=== PATIENT | female | born 1985 | race Caucasian/White ===

== ENCOUNTER 2016-09-09 08:20 | Day surgery (SDC) | payer OTHER ==
[2016-09-09] VITALS (7 sets, daily range): BP systolic 118–130; BP diastolic 59–78
[~2016-09-09] VITALS: Ht 157.5 cm; Wt 72.6 kg
[~2016-09-09 08:20] MED LIST: BCP PO; LIDOCAINE 2% INJ 100 MG/5 ML SDV (FOR ANES.) As Ordered ONE; METOCLOPRAMIDE INJ 10MG/2ML VIAL (J2765) As Ordered ONE; MIDAZOLAM INJ 2 MG/2 ML VIAL (J2250) As Ordered ONE; PROPOFOL 200 MG/20 ML VIAL As Ordered ONE; ROCURONIUM BROMIDE 50 MG/5 ML VIAL As Ordered ONE; SING10TA32 PO; XYZOL PO; fentaNYL 250 MCG/5 ML INJECTION (J3010) As Ordered ONE
[2016-09-09] MEDS ORDERED: GLYCOPYRROLATE INJ 0.2 MG/ML 2 ML VIAL As Ordered ONE (08:37)
[2016-09-09] MEDS ORDERED: KETOROLAC 60 MG/2 ML VIAL (J1885) As Ordered ONE ×2 (08:39→11:14)
[2016-09-09] MEDS ORDERED: ONDANSETRON 4MG/2ML VIAL (J2405) As Ordered ONE ×2 (08:39→11:14)
[2016-09-09] MEDS ORDERED: HYDROmorphone HCL 2 MG/ML 1ML VIAL (J1170) As Ordered ONE ×2 (08:40→11:37)
[2016-09-09] MEDS ORDERED: MIDAZOLAM INJ 2 MG/2 ML VIAL (J2250) As Ordered ONE (08:56)
[2016-09-09] MEDS ORDERED: fentaNYL 250 MCG/5 ML INJECTION (J3010) As Ordered ONE (08:57)
[2016-09-09] MEDS ORDERED: LIDOCAINE 2% INJ 100 MG/5 ML SDV (FOR ANES.) As Ordered ONE (08:58)
[2016-09-09] MEDS ORDERED: PROPOFOL 200 MG/20 ML VIAL As Ordered ONE (08:59)
[2016-09-09] MEDS ORDERED: ROCURONIUM BROMIDE 50 MG/5 ML VIAL As Ordered ONE (09:02)
[2016-09-09 09:21] LABS: CONTROL LINE UCG INT CTR LINE PRESENT
[2016-09-09 09:25] LABS: MEAN CORPUSCULAR HGB CONC 34.8 g/dl (32.0-36.5); MEAN CORPUSCULAR VOLUME 91.9 fl (80.0-96.0); RED CELL DISTRIBUTION WIDTH 12.1 % (11.5-14.5); WHITE BLOOD COUNT 6.8 K/mm3 (4.0-10.0)
[2016-09-09] MEDS ORDERED: BUSP5TA PO (09:44)
[2016-09-09] MEDS ORDERED: LR 1,000 ML IV SCH ×4 (09:45→12:45)
[2016-09-09] MEDS: LR 1,000 ML IV SCH ×2 (09:45→12:26)
[2016-09-09] MEDS ORDERED: ceFAZolin SOD 1 GM in D5W MINI-BAG PLUS 50 ML IV ONE (09:45)
[2016-09-09] MEDS ORDERED: OXYC1TAB23 PO (09:47)
[2016-09-09] MEDS ORDERED: BUPIVACAINE HCL 0.25% 30 ML VIAL As Ordered ONE (09:47)
[2016-09-09] MEDS ORDERED: METHYLENE BLUE 1% 10 ML VIAL (Q9968) As Ordered ONE (09:47)
[2016-09-09] MEDS ORDERED: TYLE500T78 PO (10:08)
[2016-09-09] MEDS ORDERED: dexameTHASONE 4 MG/ML 1ML VIAL (J1100) As Ordered ONE (10:35)
[2016-09-09] MEDS ORDERED: BUPIVACAINE HCL 0.25% 30 ML VIAL XX ONE (10:46)
[2016-09-09] MEDS ORDERED: PERCOCET 5MG/325MG TAB As Ordered ONE (12:10)
[2016-09-09] MEDS ORDERED: METOCLOPRAMIDE INJ 10MG/2ML VIAL (J2765) IV PRN ×2 (12:30→14:00)
[2016-09-09] MEDS ORDERED: ONDANSETRON 4MG/2ML VIAL (J2405) IV PRN ×2 (12:30→12:45)
[2016-09-09] MEDS ORDERED: PERCOCET 5MG/325MG TAB PO PRN ×2 (12:30→12:45)
[2016-09-09] MEDS ORDERED: fentaNYL 100 MCG/2 ML INJECTION (J3010) IV PRN (12:30)
[2016-09-09] MEDS ORDERED: MORPHINE 4 MG/ML 1ML SYRINGE IV PRN (12:45)
[2016-09-09] MEDS: DOCUSATE SODIUM 100 MG CAP PO SCH ×2 (14:47→20:17)
[2016-09-09] MEDS: PERCOCET 5MG/325MG TAB PO PRN (16:13)
--- NOTE | 2016-09-09 19:01 | RO ---
DATE OF PROCEDURE: 09/09/2016 PREPROCEDURE DIAGNOSIS: Recurrent severe cervical dysplasia. POSTPROCEDURE DIAGNOSIS: Recurrent severe cervical dysplasia. PROCEDURE: Robotic-assisted laparoscopic hysterectomy with bilateral salpingo-oophorectomy and cystoscopy. SURGEON: Javier Andrade MD FORESTRY PROFESSOR: AVELINO Ballesteros ANESTHESIA: General endotracheal. ESTIMATED BLOOD LOSS: 100 mL. FINDINGS: Normal uterus, fallopian tubes, and ovaries. Normal upper abdomen. OPERATIVE SUMMARY: The patient taken to the operating room where general endotracheal anesthesia was induced. She was prepped and draped in sterile fashion in the dorsal lithotomy position. A Aviles catheter was placed. VCare uterine manipulator was placed. A periumbilical incision made with a scalpel. Veress needle was placed through this incision while tenting up on the skin of the abdomen. Intraabdominal location of the Veress needle was assessed with use of a saline filled synringe. A pneumoperitoneum was created. The Veress needle was removed. An 11 mm trocar was placed through this incision. Three 8 mm suprapubic ports were placed under direct visualization without difficulty. The patient was placed in Trendelenburg position and the da Susanna surgical robot was docked. Insole Taper Gris Fletcher assisted with the insertion of ports as well as docking of the da Susanna robot. She also served as a critical role of uterine manipulation throughout the duration of the procedure. She assisted with closure of the incision and removal and undocking of the robot as well. The infundibulopelvic (IP) ligaments were coagulated, PK dissector and incised with monopolar endoshears. Broad ligament attachments were coagulated and incised. The round ligaments were coagulated and incised. The anterior and posterior leaves of the broad ligament were . The bladder flap was created. The uterine vessels were skeletonized, coagulated and incised. Colpotomy was created and the upper vagina was circumscribed at the level of VCare cup. Specimen included the uterus, cervix, fallopian tubes, and ovaries were removed through the vagina. The vagina was closed with V-Loc suture in a running fashion. The pelvis was irrigated. The patient received methylene blue dye intravenously. Cystoscopy was performed using a 70 degrees cystoscope. Bilateral ureteral jets were identified. There was no evidence of injury to the bladder. All instruments were removed and the Aviles catheter was replaced. Skin was closed with #4-0 Monocryl subcuticular sutures. The sponge, instrument and needle counts were correct.
[2016-09-09] MEDS: KETOROLAC 30 MG/ML VIAL (J1885) IV PRN (20:17)
[2016-09-10] VITALS: BP 129/72
[2016-09-10 04:00] VITALS: BP 122/73
[2016-09-10] MEDS: KETOROLAC 30 MG/ML VIAL (J1885) IV PRN (04:20)
[2016-09-10 07:25] LABS: MEAN CORPUSCULAR HEMOGLOBIN 31.8 pg (27.0-33.0); MEAN CORPUSCULAR HGB CONC 34.9 g/dl (32.0-36.5); MEAN CORPUSCULAR VOLUME 91.1 fl (80.0-96.0); WHITE BLOOD COUNT 10.8 K/mm3 (4.0-10.0)
[2016-09-10 08:00] VITALS: BP 120/67
[2016-09-10] MEDS ORDERED: ACET30TAB PO (08:03)
[2016-09-10] MEDS: DOCUSATE SODIUM 100 MG CAP PO SCH (09:37)
[2016-09-10] MEDS: PERCOCET 5MG/325MG TAB PO PRN (09:51)
[2016-09-10] MEDS ORDERED: ESTR625TA PO (10:20)
== END 2016-09-10 10:50 | disposition home or self-care (01) ==
LOC: M SDC 08:20 → M PED 12:57 → M SDC 09-10 10:50
PROVIDERS: ATTEND Specialist
DX: D06.9 Carcinoma in situ of cervix, unspecified (principal); F32.9 Major depressive disorder, single episode, unspecified; Z79.899 Other long term (current) drug therapy
CPT/HCPCS: 36415; 58571; 84703; 85027; 88309; 96374; 96375; 96376; J0690; J1100; J1170; J1885; J2250; J2405; J2765; J3010; Q9968

== ENCOUNTER → 2016-09-20 | Outpatient (REF) | payer OTHER ==
[~2016-09-20] MED LIST changes: +ACET30TAB PO; +BUSP5TA PO; +ESTR625TA PO; -LIDOCAINE 2% INJ 100 MG/5 ML SDV (FOR ANES.) As Ordered ONE; -METOCLOPRAMIDE INJ 10MG/2ML VIAL (J2765) As Ordered ONE; -MIDAZOLAM INJ 2 MG/2 ML VIAL (J2250) As Ordered ONE; +OXYC1TAB23 PO; -PROPOFOL 200 MG/20 ML VIAL As Ordered ONE; -ROCURONIUM BROMIDE 50 MG/5 ML VIAL As Ordered ONE; +TYLE500T78 PO; -fentaNYL 250 MCG/5 ML INJECTION (J3010) As Ordered ONE
[2016-09-20 11:15] LABS: MEAN CORPUSCULAR HEMOGLOBIN 30.7 pg (27.0-33.0); MEAN CORPUSCULAR HGB CONC 33.3 g/dl (32.0-36.5); MEAN CORPUSCULAR VOLUME 92.1 fl (80.0-96.0); WHITE BLOOD COUNT 7.3 K/mm3 (4.0-10.0)
[2016-09-20 11:42] LABS: ALBUMIN 3.9 GM/DL (3.2-5.2); ALBUMIN/GLOBULIN RATIO 1.15 (1.00-1.93); ALKALINE PHOSPHATASE 60 U/L (45-117); ALT/SGPT 18 U/L (12-78); ANION GAP 8 MEQ/L (8-16); AST/SGOT 13 U/L (15-37); BILIRUBIN,TOTAL 0.8 MG/DL (0.2-1.0); BLOOD UREA NITROGEN 10 MG/DL (7-18); CALCIUM LEVEL 9.4 MG/DL (8.5-10.1); CARBON DIOXIDE LEVEL 30 MEQ/L (21-32); CHLORIDE LEVEL 105 MEQ/L (98-107); CHOLESTEROL LEVEL 240 MG/DL (<200); CREATININE FOR GFR 0.72 MG/DL (0.55-1.02); GLOMERULAR FILTRATION RATE > 60.0 (>60); GLUCOSE, FASTING 86 MG/DL (70-105); POTASSIUM SERUM 4.3 MEQ/L (3.5-5.1); SODIUM LEVEL 143 MEQ/L (136-145); TOTAL PROTEIN 7.3 GM/DL (6.4-8.2); TRIGLYCERIDES LEVEL 184 MG/DL (<150)
== END ==
LOC: M SFHCLERA 08:36
PROVIDERS: ATTEND Family Medicine
DX: Z02.1 Encounter for pre-employment examination (principal)

== ENCOUNTER → 2016-12-02 | Outpatient (REF) | payer BC, OTHER | LOC: M SFHCLERA 18:14 | PROVIDERS: ATTEND Nurse Practitioner Family | DX: J02.9 Acute pharyngitis, unspecified (principal) ==

== ENCOUNTER → 2016-12-12 | Outpatient (REF) | payer BC, OTHER | LOC: M SFHCLERA 16:50 | PROVIDERS: ATTEND Family Medicine | DX: J02.9 Acute pharyngitis, unspecified (principal); H92.02 Otalgia, left ear ==

== ENCOUNTER → 2017-04-16 | Outpatient (CLI) | payer BC, OTHER ==
[~2017-04-16] MED LIST changes: +EPIP0.3I2 IJ
--- NOTE | 2017-04-16 09:09 | REP ---
CHEST, TWO VIEWS: CHEST: There is no evidence of acute infiltrate. No pleural effusion is seen. The heart is normal in size. The mediastinal silhouette is unremarkable. The visualized osseous structures are intact. IMPRESSION: No acute pulmonary disease. Signed by Srinath Bonds MD 04/16/2017 05:07 P
== END ==
LOC: M LRY 07:58
PROVIDERS: ATTEND Family Medicine
DX: R09.1 Pleurisy (principal)

== ENCOUNTER → 2017-05-13 | Outpatient (CLI) | payer BC ==
[2017-05-16 08:08] LABS: F025-IGE TOMATO <0.10 kU/L (Class 0)
== END ==
LOC: M SMT 13:35
PROVIDERS: ATTEND Nurse Practitioner Family
DX: Z91.018 Allergy to other foods (principal)

== ENCOUNTER → 2017-05-15 | Outpatient (REF) | payer BC, OTHER | LOC: M SFHCLERA 16:33 | PROVIDERS: ATTEND Family Medicine | DX: K58.1 Irritable bowel syndrome with constipation (principal); J02.9 Acute pharyngitis, unspecified ==

== ENCOUNTER 2017-06-20 19:07 | Emergency (ER) | payer BC, OTHER ==
[~2017-06-20 19:07] MED LIST changes: -EPIP0.3I2 IJ
[2017-06-20] MEDS ORDERED: EPIP0.3I2 IJ (19:52)
[2017-06-20 20:05] VITALS: BP 126/69
== END 2017-06-20 20:06 | disposition home or self-care (01) ==
LOC: M ED 19:07
DX: L29.9 Pruritus, unspecified (principal); T51.0X1A Toxic effect of ethanol, accidental (unintentional), initial encounter; Y92.9 Unspecified place or not applicable; Y93.9 Activity, unspecified; Z79.899 Other long term (current) drug therapy; Z88.1 Allergy status to other antibiotic agents

== ENCOUNTER → 2017-10-13 | Outpatient (REF) | payer BC, OTHER | LOC: M SFHCLERA 15:24 | DX: J02.9 Acute pharyngitis, unspecified (principal) ==

== ENCOUNTER 2017-10-22 09:55 | Day surgery (SDC) | payer BC ==
[2017-10-22] MEDS: NS 1,000 ML IV (11:06)
[2017-10-22] MEDS ORDERED: LIDOCAINE 2% MDV 20 ML VIAL As Ordered (11:28)
[2017-10-22] MEDS ORDERED: PROPOFOL 200 MG/20 ML VIAL As Ordered ×3 (11:28→11:54)
== END 2017-10-22 13:04 | disposition home or self-care (01) ==
LOC: M OPP 09:55
DX: R19.4 Change in bowel habit (principal); Z80.0 Family history of malignant neoplasm of digestive organs; F41.9 Anxiety disorder, unspecified; F32.9 Major depressive disorder, single episode, unspecified; Z79.899 Other long term (current) drug therapy; Z88.1 Allergy status to other antibiotic agents; Z90.710 Acquired absence of both cervix and uterus
CPT/HCPCS: 45378

== ENCOUNTER → 2018-07-17 | Outpatient (REF) | payer BC, OTHER | LOC: M SFHCLERA 18:41 | DX: J02.9 Acute pharyngitis, unspecified (principal) ==

== ENCOUNTER → 2018-07-24 | Outpatient (CLI) | payer BC, OTHER | LOC: M LRY 18:22 | DX: R05 Cough (principal); R91.8 Other nonspecific abnormal finding of lung field | CPT/HCPCS: 71046 ==

== ENCOUNTER → 2018-08-29 | Outpatient (REF) | payer BC ==
[~2018-08-29] MED LIST changes: +EPIP0.3I2 IJ; +XYZA5TAB2 PO
--- NOTE | 2018-08-29 20:19 | REP ---
Clinical: Foreign body. Technique: AP, lateral, bilateral oblique views of the left foot. Findings: There is a thin foreign body within the subcutaneous tissues underlying the third metatarsal bone which measures approximately 14 mm in length and is consistent with fractured needle fragment. No obvious subcutaneous emphysema. The osseous structures and joint spaces are intact and unaffected. No acute fracture or dislocation. Impression: Foreign body consistent with needle fragment in the subcutaneous soft tissues underlying the third metatarsal bone. Electronically Signed by Fly Bruno MD 08/29/2018 08:11 P
== END ==
LOC: M RAD 19:45
PROVIDERS: ATTEND Physician Assistant
DX: M25.572 Pain in left ankle and joints of left foot (principal)

== ENCOUNTER → 2018-11-25 | Outpatient (REF) | payer BC, OTHER | LOC: M SFHCLERA 19:01 | PROVIDERS: ATTEND Physician Assistant | DX: J02.9 Acute pharyngitis, unspecified (principal) ==

== ENCOUNTER → 2019-02-02 | Outpatient (REF) | payer BC, OTHER ==
[~2019-02-02] MED LIST changes: +ACET-716 PO; -ACET30TAB PO; +CLON0.5T8; +VENTAER
[2019-02-02 20:53] LABS: BASO % 0.6 % (0.0-1.0); EOS # 0.1 10^3/uL (0.0-0.50); EOS % 1.9 % (0.0-3.0); HEMATOCRIT 40.2 % (36.0-47.0); LYMPH # 2.1 10^3/uL (1.5-4.5); LYMPH % 30.8 % (24.0-44.0); MEAN CORPUSCULAR HEMOGLOBIN 31.2 pg (27.0-33.0); MEAN CORPUSCULAR HGB CONC 32.3 g/dl (32.0-36.5); MEAN CORPUSCULAR VOLUME 96.4 fl (80.0-96.0); MONO # 0.4 10^3/uL (0.0-0.8); MONO % 6.1 % (0.0-5.0); NEUTROPHILS # 4.2 10^3/uL (1.8-7.7); NEUTROPHILS % 60.5 % (36.0-66.0); PLATELET COUNT, AUTOMATED 265 10^3/uL (150-450); RED BLOOD COUNT 4.17 10^6/uL (4.00-5.40); WHITE BLOOD COUNT 6.9 10^3/uL (4.0-10.0)
== END ==
LOC: M SFHCLERA 10:07
PROVIDERS: ATTEND Family Medicine
DX: R22.1 Localized swelling, mass and lump, neck (principal)

== ENCOUNTER 2019-02-23 17:56 | Emergency (ER) | payer SELFPAY ==
[~2019-02-23] VITALS: Ht 157.5 cm; Wt 76.4 kg
[2019-02-23] MEDS ORDERED: TYLETAB14 (18:03)
[2019-02-23] MEDS ORDERED: CLIN300C5 (18:03)
[2019-02-23 19:57] LABS: BASO % 0.5 % (0.0-1.0); EOS # 0.1 10^3/uL (0.0-0.50); EOS % 1.4 % (0.0-3.0); HEMATOCRIT 35.6 % (36.0-47.0); HEMOGLOBIN 12.1 g/dl (12.0-15.5); LYMPH # 2.2 10^3/uL (1.5-4.5); LYMPH % 27.5 % (24.0-44.0); MEAN CORPUSCULAR HEMOGLOBIN 31.7 pg (27.0-33.0); MEAN CORPUSCULAR VOLUME 93.2 fl (80.0-96.0); MONO # 0.5 10^3/uL (0.0-0.8); MONO % 6.8 % (0.0-5.0); NEUTROPHILS % 63.5 % (36.0-66.0); PLATELET COUNT, AUTOMATED 285 10^3/uL (150-450); RED BLOOD COUNT 3.82 10^6/uL (4.00-5.40); WHITE BLOOD COUNT 7.9 10^3/uL (4.0-10.0)
--- NOTE | 2019-02-23 20:30 | REP ---
Clinical: Cellulitis. Technique: AP and lateral views of the right tibia / fibula. Findings: The osseous structures and joint spaces are intact and normal. The surrounding soft tissues are grossly unremarkable and without subcutaneous emphysema or foreign body. Impression: Normal right tibia / fibula radiographs. Electronically Signed by Fly Bruno MD 02/23/2019 08:22 P
[2019-02-23 20:38] LABS: ERYTHROCYTE SEDIMENTATION RATE 33 mm/hr (0-20)
[2019-02-23 20:59] VITALS: BP 126/80
[2019-02-23] MEDS ORDERED: TYLETAB14 PO (21:02)
== END 2019-02-23 21:07 | disposition home or self-care (01) ==
LOC: M ED 17:56
DX: L03.115 Cellulitis of right lower limb (principal); K59.09 Other constipation; Z79.899 Other long term (current) drug therapy; Z88.8 Allergy status to other drugs, medicaments and biological substances

== ENCOUNTER → 2019-09-26 | Outpatient (REF) | payer BC, OTHER, SELFPAY ==
[~2019-09-26] MED LIST changes: +AZIT500T5 PO; +CLIN300C5; +CLON0.5T2; -CLON0.5T8; +OSEL75CA2; +TUSS1CAP5 PO; +TYLETAB14; +TYLETAB14 PO
[2019-09-26 14:55] LABS: INFLUENZA A AMPLIFICATION NEGATIVE (NEGATIVE); INFLUENZA B AMPLIFICATION NEGATIVE (NEGATIVE)
== END ==
LOC: M LAB REF 14:10
PROVIDERS: ATTEND Physician Assistant Medical
DX: R50.9 Fever, unspecified (principal)

== ENCOUNTER 2019-09-27 16:43 | Emergency (ER) | payer SELFPAY ==
[~2019-09-27] VITALS: Ht 157.5 cm; Wt 74.1 kg
[~2019-09-27 16:43] MED LIST changes: -AZIT500T5 PO; -OSEL75CA2; -TUSS1CAP5 PO
[2019-09-27] MEDS ORDERED: IBUPROFEN 600 MG TAB PO ONE (20:15)
[2019-09-27] MEDS ORDERED: OSEL75CA2 (20:53)
[2019-09-27] MEDS ORDERED: AZIT500T5 PO (21:49)
[2019-09-27] MEDS ORDERED: TUSS1CAP5 PO (21:50)
[2019-09-27] MEDS ORDERED: TUSSICAPS ER 10/8MG CAPSULE PO ONE (22:00)
[2019-09-27] MEDS ORDERED: AZITHROMYCIN 250 MG TAB PO ONE (22:00)
[2019-09-27 22:04] VITALS: BP 135/82
== END 2019-09-27 22:07 | disposition home or self-care (01) ==
LOC: M ED 16:43
DX: J20.9 Acute bronchitis, unspecified (principal); R50.9 Fever, unspecified; H92.23 Otorrhagia, bilateral; F41.9 Anxiety disorder, unspecified; Z88.1 Allergy status to other antibiotic agents; Z79.899 Other long term (current) drug therapy

== ENCOUNTER 2020-03-28 17:49 | Emergency (ER) | payer BC ==
[~2020-03-28 17:49] MED LIST changes: +AZIT500T5 PO; +OSEL75CA2; +TUSS1CAP5 PO
[2020-03-28] MEDS ORDERED: MAGNESIUM CITRATE 300 ML BTL As Ordered ONE (20:59)
[2020-03-28] MEDS ORDERED: MAGNESIUM CITRATE 300 ML BTL ONE (20:59)
== END 2020-03-28 22:20 | disposition home or self-care (01) ==
LOC: M ED 17:49
DX: K59.00 Constipation, unspecified (principal); Z88.1 Allergy status to other antibiotic agents; Z79.899 Other long term (current) drug therapy

== ENCOUNTER → 2020-10-12 | Outpatient (CLI) | payer BC ==
[~2020-10-12] MED LIST changes: -CLIN300C5; +CLIN300C6
--- NOTE | 2020-10-12 07:29 | REPVR ---
PROCEDURE INFORMATION: Exam: CT Maxillofacial Without Contrast, Sinus Exam date and time: 10/12/2020 7:17 AM Age: 35 years old Clinical indication: Pain; Other: Sinus; Additional info: Chronic max sinusitis TECHNIQUE: Imaging protocol: CT Maxillofacial without contrast. Focus on the sinuses. Radiation optimization: All CT scans at this facility use at least one of these dose optimization techniques: automated exposure control; mA and/or kV adjustment per patient size (includes targeted exams where dose is matched to clinical indication); or iterative reconstruction. COMPARISON: CT Maxilofacial w/out contrast 01/19/2019 4:34 PM FINDINGS: Frontal sinuses: The frontal sinuses are again hypoplastic. Ethmoid air cells: Normal. No air-fluid levels. Sphenoid sinuses: Normal. No air-fluid levels. Maxillary sinuses: Normal. No air-fluid levels. Ostiomeatal units are patent. Nasal cavity/Septum: The ostiomeatal units are patent. Orbital cavity: The globes appear grossly intact, and no definite intraorbital hematoma is identified. Bones/joints: The temporomandibular joints are normally aligned. The orbital floors and lamina papyracea are intact. No acute fracture is identified. Soft tissues: Unremarkable. Mastoid air cells: The mastoid air cells are clear. Brain: The visualized intracranial structures appear grossly unremarkable. IMPRESSION: No significant paranasal sinus disease. Electronically signed by: Dylon Hodges On 10/12/2020 07:29:37 AM
== END ==
LOC: M RAD 07:10
PROVIDERS: ATTEND Otolaryngology
DX: J32.0 Chronic maxillary sinusitis (principal)

== ENCOUNTER → 2021-02-16 | Outpatient (CLI) | payer BC ==
[~2021-02-16] MED LIST changes: +ESTR1TAB; +LEVOTAB10; +PANT40TA29; +SUCR1TAB56
== END ==
LOC: M LABSMTC 10:50
PROVIDERS: ATTEND Anesthesiology
DX: Z01.818 Encounter for other preprocedural examination (principal); Z11.52 Encounter for screening for COVID-19

== ENCOUNTER 2021-02-21 12:33 | Day surgery (SDC) | payer BC ==
[~2021-02-21] VITALS: Ht 157.5 cm; Wt 79.4 kg
[~2021-02-21 12:33] MED LIST changes: +NS 1,000 ML IV ONE
[2021-02-21] MEDS ORDERED: LIDOCAINE 2% 100MG/5ML SDV (FOR ANES.) As Ordered ONE (12:54)
[2021-02-21] MEDS ORDERED: propofoL 200 MG/20 ML VIAL As Ordered ONE (12:54)
[2021-02-21] MEDS ORDERED: fentaNYL 100 MCG/2 ML INJECTION (J3010) As Ordered ONE (14:46)
--- NOTE | 2021-02-21 14:56 | ROOR ---
Patient Name: Coretta Davis Procedure Date: 02/21/2021 2:38 PM Date of : 1985 Age: 35 Room: [facility] Gender: Female Note Status: Finalized Procedure: Upper GI endoscopy Indications: Suspected acute gastritis with hemorrhage Providers: DO bAbey Galvan MD: Srinath KIRKPATRICK MD Requesting Provider: Medicines: Propofol per Anesthesia Complications: No immediate complications. Procedure: Pre-Anesthesia Assessment: - Prior to the procedure, a History and Physical was performed, and patient medications and allergies were reviewed. The patient is competent. The risks and benefits of the procedure and the sedation options and risks were discussed with the patient. All questions were answered and informed consent was obtained. Patient identification and proposed procedure were verified by the physician, the nurse, the farm equipment assembler and the detail technician in the endoscopy suite. Mental Status Examination: alert and oriented. Airway Examination: normal oropharyngeal airway and neck mobility. Respiratory Examination: clear to auscultation. CV Examination: normal. Prophylactic Antibiotics: The patient does not require prophylactic antibiotics. Prior Anticoagulants: The patient has taken no previous anticoagulant or antiplatelet agents. ASA Grade Assessment: II - A patient with mild systemic disease. After reviewing the risks and benefits, the patient was deemed in satisfactory condition to undergo the procedure. The anesthesia plan was to use monitored anesthesia care (MAC). Immediately prior to administration of medications, the patient was re-assessed for adequacy to receive sedatives. The heart rate, respiratory rate, oxygen saturations, blood pressure, adequacy of pulmonary ventilation, and response to care were monitored throughout the procedure. The physical status of the patient was re-assessed after the procedure. The Endoscope was introduced through the mouth, and advanced to the second part of duodenum. The patient tolerated the procedure well. Findings: Diffuse mild inflammation characterized by erythema and friability was found in the prepyloric region of the stomach. Biopsies were taken with a cold forceps for Helicobacter pylori testing. Estimated blood loss was minimal. There is no endoscopic evidence of bleeding or inflammation in the first portion of the duodenum. Biopsies for histology were taken with a cold forceps for evaluation of celiac disease. Impression: - Gastritis. Biopsied. Recommendation: - Patient has a contact number available for emergencies. The signs and symptoms of potential delayed complications were discussed with the patient. Return to normal activities tomorrow. Written discharge instructions were provided to the patient. - Await pathology results. - Return to my office at appointment to be scheduled. Procedure Code(s): --- Professional --- 69146, Esophagogastroduodenoscopy, flexible, transoral; with biopsy, single or multiple Diagnosis Code(s): --- Professional --- K29.70, Gastritis, unspecified, without bleeding CPT copyright 2019 [employer]. All rights reserved. The codes documented in this report are preliminary and upon electric meter setter review may be revised to meet current compliance requirements. Srinath Mooney DO 02/21/2021 2:55:39 PM Electronically signed by Srinath Mooney DO Number of Addenda: 0 Note Initiated On: 02/21/2021 2:38 PM Estimated Blood Loss: Estimated blood loss was minimal.
[2021-02-21 15:15] VITALS: BP 142/78
== END 2021-02-21 15:24 | disposition home or self-care (01) ==
LOC: M OPP 12:33
PROVIDERS: ATTEND Surgery
DX: K29.70 Gastritis, unspecified, without bleeding (principal); K21.9 Gastro-esophageal reflux disease without esophagitis; K29.81 Duodenitis with bleeding; Z79.899 Other long term (current) drug therapy; Z88.1 Allergy status to other antibiotic agents
CPT/HCPCS: 43239; 88305; J3010

== ENCOUNTER → 2021-08-17 | Outpatient (CLI) | payer BC ==
[~2021-08-17] MED LIST changes: +CLIN-250; -CLIN300C6; -NS 1,000 ML IV ONE
== END ==
LOC: M RAD 08:32
PROVIDERS: ATTEND Internal Medicine
DX: R10.13 Epigastric pain (principal)

== ENCOUNTER → 2022-08-22 | Outpatient (CLI) | payer BC | LOC: M SOG 08:09 | PROVIDERS: ATTEND Physician Assistant | DX: M79.641 Pain in right hand (principal); M79.642 Pain in left hand; M79.644 Pain in right finger(s); M79.645 Pain in left finger(s) ==

== ENCOUNTER → 2023-03-27 | Outpatient (CLI) | payer BC ==
[~2023-03-27] MED LIST changes: +MONT-5 PO; -SING10TA32 PO
[2023-03-27 15:33] LABS: BASO # 0.1 10^3/uL (0.0-0.2); BASO % 0.9 % (0.0-1.0); EOS # 0.1 10^3/uL (0.0-0.5); EOS % 1.5 % (0.0-3.0); HEMATOCRIT 42.6 % (36.0-47.0); HEMOGLOBIN 13.9 g/dl (12.0-15.5); LYMPH % 30.4 % (24.0-44.0); MEAN CORPUSCULAR HEMOGLOBIN 30.5 pg (27.0-33.0); MEAN CORPUSCULAR HGB CONC 32.6 g/dl (32.0-36.5); MEAN CORPUSCULAR VOLUME 93.4 fl (80.0-96.0); MONO # 0.4 10^3/uL (0.0-0.8); MONO % 6.5 % (2.0-8.0); NEUTROPHILS # 3.9 10^3/uL (1.5-8.5); NEUTROPHILS % 60.5 % (36.0-66.0); PLATELET COUNT, AUTOMATED 257 10^3/uL (150-450); RED BLOOD COUNT 4.56 10^6/uL (4.00-5.40); WHITE BLOOD COUNT 6.5 10^3/uL (4.0-10.0)
[2023-03-27 15:48] LABS: HEMOGLOBIN A1c 5.2 % (4.0-6.0)
[2023-03-27 16:06] LABS: ALBUMIN 3.9 G/DL (3.2-5.2); ALKALINE PHOSPHATASE 72 U/L (46-116); ALT/SGPT 17 U/L (7.0-40); AST/SGOT 11 U/L (<34); BILIRUBIN,TOTAL 0.7 MG/DL (0.3-1.2); BLOOD UREA NITROGEN 12 MG/DL (9-23); CALCIUM LEVEL 9.3 MG/DL (8.5-10.1); CARBON DIOXIDE LEVEL 28 MMOL/L (20-31); CHLORIDE LEVEL 105 MMOL/L (98-107); CREATININE FOR GFR 0.67 MG/DL (0.55-1.30); GLOMERULAR FILTRATION RATE > 60.0 (>60); GLUCOSE, FASTING 96 MG/DL (60-100); POTASSIUM SERUM 4.4 MMOL/L (3.5-5.1); RHEUMATOID FACTOR QUANT < 3.5 IU/ML (<14); SODIUM LEVEL 141 MMOL/L (136-145); TOTAL PROTEIN 6.6 G/DL (5.7-8.2)
[2023-03-27 16:08] LABS: FOLATE 14.1 NG/ML (>5.4); THYROID STIMULATING HORMONE 3.137 uIU/ML (0.55-4.78); VITAMIN B12 LEVEL 237 PG/ML (211-911)
[2023-03-27 16:10] LABS: ERYTHROCYTE SEDIMENTATION RATE 13 mm/hr (0-20)
== END ==
LOC: M PLALAB 14:19
PROVIDERS: ATTEND Psychiatry & Neurology Neurology
DX: G62.9 Polyneuropathy, unspecified (principal)

== ENCOUNTER → 2023-04-07 | Outpatient (REF) | payer BC ==
[2023-04-07 19:04] LABS: HIV 1&2 SCREEN NEGATIVE (NEGATIVE)
[2023-04-07 19:11] LABS: HEPATITIS C VIRUS ABY INDEX 0.13 INDEX (<0.8)
[2023-04-07 19:13] LABS: GC DNA AMPLIFICATION NEGATIVE (NEGATIVE)
== END ==
LOC: M LAB REF 16:42
PROVIDERS: ATTEND Physician Assistant Medical
DX: Z13.89 Encounter for screening for other disorder (principal)

== ENCOUNTER → 2024-09-29 | Outpatient (CLI) | payer OTHER | LOC: M WHC 07:50 | PROVIDERS: ATTEND Internal Medicine | DX: Z12.31 Encounter for screening mammogram for malignant neoplasm of breast (principal); R92.333 Mammographic heterogeneous density, bilateral breasts ==

== ENCOUNTER → 2024-12-01 | Outpatient (REF) | payer OTHER ==
[2024-12-01 19:24] LABS: PERCENT SATURATION 20.7 % (13.2-45.0)
[2024-12-01 19:27] LABS: FERRITIN 33.4 NG/ML (7.3-270.7)
== END ==
LOC: M LAB REF 17:34
PROVIDERS: ATTEND Internal Medicine
DX: R10.13 Epigastric pain (principal)

== ENCOUNTER → 2025-06-04 | Outpatient (REF) | payer OTHER | LOC: M LAB REF 16:49 | DX: J03.90 Acute tonsillitis, unspecified (principal) ==

== ENCOUNTER → 2025-06-21 | Outpatient (REF) | payer OTHER | LOC: M LAB REF 11:53 | PROVIDERS: ATTEND Internal Medicine | DX: R10.13 Epigastric pain (principal) ==

== ENCOUNTER → 2025-06-22 | Outpatient (REF) | payer OTHER | LOC: M LAB REF 12:33 | PROVIDERS: ATTEND Internal Medicine | DX: R10.9 Unspecified abdominal pain (principal) ==